=== PATIENT | male | born 1995 | race Caucasian/White ===

== ENCOUNTER 2020-09-19 20:55 | Emergency (ER) | payer OTHER ==
[~2020-09-19] VITALS: Ht 182.9 cm; Wt 86.1 kg
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
[2020-09-19 22:23] VITALS: BP 142/91
== END 2020-09-19 22:37 | disposition home or self-care (01) ==
LOC: M ED 20:55
DX: S06.0X0A Concussion without loss of consciousness, initial encounter (principal); Y00.XXXA Assault by blunt object, initial encounter; Y92.149 Unspecified place in prison as the place of occurrence of the external cause; Y93.89 Activity, other specified; Y99.8 Other external cause status; J45.909 Unspecified asthma, uncomplicated